=== PATIENT | female | born 1995 | race American Indian/Alaskan Native ===

== ENCOUNTER 2020-12-24 09:18 | Emergency (ER) | payer BC ==
--- NOTE | 2020-12-24 10:04 | EDM.PDOC ---
ED HPI GENERAL MEDICAL PROBLEM - General Chief Complaint: Skin Complaint Stated Complaint: INFECTED LIP PIERCING Time Seen by Provider: 12/24/20 09:39 Source of Information: Reports: Patient, RN Notes Reviewed History Limitations: Reports: No Limitations - History of Present Illness INITIAL COMMENTS - FREE TEXT/NARRATIVE: 25-year-old female presents emergency department today with complaint of a swollen upper lip as well as a lip stud that she wants removed. The back portion of the screw type started the mucosal lining has overgrown the nut, and it cannot be removed - Related Data Allergies Allergy/AdvReac Type Severity Reaction Status Date / Time No Known Allergies Allergy Verified 12/24/20 09:32 Home Meds: Home Meds NK [No Known Home Meds] 12/24/20 [History] Past Medical History - Past Health History Medical/Surgical History: Denies Medical/Surgical History Social & Family History - Tobacco Use Tobacco Use Status *Q: Current Every Day Tobacco User Years of Tobacco use: 5 Packs/Tins Daily: 0.2 - Caffeine Use Caffeine Use: Reports: Coffee, Energy Drinks - Recreational Drug Use Recreational Drug Use: No ED ROS GENERAL - Review of Systems Review Of Systems: See Below Skin: Reports: Erythema, Wound, Change in Color ED EXAM, SKIN/RASH Exam: See Below Text/Narrative:: Mouth mucosa is moist and pink there is no erythema exudate known soft palate tongue is midline uvula is midline there is a lip stud piercing through the upper lip midline however when the epithelial lining is examined on the inner aspect of the upper lip the nut portion of the stud cannot be identified the epithelium has overgrown this Exam Limited By: No Limitations General Appearance: Alert, WD/WN, No Apparent Distress Course - Vital Signs Last Recorded V/S: Last Vital Signs Temp 97.9 F 12/24/20 09:32 Pulse 85 12/24/20 09:32 Resp 20 12/24/20 09:32 BP 152/82 H 12/24/20 09:32 Pulse Ox 97 12/24/20 09:32 Departure - Departure Time of Disposition: 10:02 Disposition: Home, Self-Care 01 Condition: Fair Clinical Impression: Foreign body in lip Qualifiers: Encounter type: initial encounter Qualified Code(s): S00.551A - Superficial foreign body of lip, initial encounter - Discharge Information Instructions: Skin Foreign Body Referrals: PCP,None [Primary Care Provider] - Additional Instructions: Please report to the [facility] next-door for an appointment time with Dr. Valencia ear nose and throat at 1030 for further evaluation and treatment Sepsis Event Note (ED) - Evaluation Sepsis Screening Result: No Definite Risk - Focused Exam Vital Signs: Vital Signs Temp Pulse Resp BP Pulse Ox 12/24/20 09:32 97.9 F 85 20 152/82 H 97 - Assessment/Plan Plan: Assessment Acuity = acute Site and laterality = foreign body upper lip Etiology = piercing stud Manifestations = none Location of injury = Home Lab values = none Plan Went and discussed case with Dr. Valencia ear nose and throat kindly agreed to see the patient in his clinic appointment was set up for [facility] around 1030 this morning This note was dictated using [employer] voice recognition software please call with any questions on syntax or grammar.
== END 2020-12-24 10:09 | disposition home or self-care (01) ==
LOC: JP.ED 09:18
DX: S00.551A Superficial foreign body of lip, initial encounter (principal); Z72.0 Tobacco use; W26.8XXA Contact with other sharp object(s), not elsewhere classified, initial encounter
CPT/HCPCS: 99282; 99283